=== PATIENT | female | born 1985 | race African-American/Black ===

== ENCOUNTER 2018-04-19 16:45 | Inpatient (IN) | payer MEDICAID, MEDICARE ==
[2018-04-19] MEDS ORDERED: BETAMET ACET/BETAMET NA INJ 6 MG/1 ML IM PRN (18:10)
[2018-04-19] MEDS ORDERED: PENICILLIN G POTASSIUM 5,000,000 UNIT in DEXTROSE 5%-WATER 100 ML IV ONE (18:15)
[2018-04-19] MEDS ORDERED: RINGERS SOLUTION,LACTATED 1,000 ML IV ONE (18:15)
[2018-04-19] MEDS ORDERED: RINGERS SOLUTION,LACTATED 1,000 ML IV PRN (18:15)
--- NOTE | 2018-04-19 18:17 | Admission Physical ---
Datetime Report Generated by CPN: 04/19/2018 18:17 CURRENT ADMISSION Chief Complaint: Uterine Contractions; Suspected Ruptured Membranes Chief Complaint Other: Multigravida Indication for Induction: PROM Admit Impression : , Intrauterine ; Ruptured Membranes Admit Impression- Other: + Actiprom Admit Plan: Admit to Unit; Initiate Labor Augmentation Protocol ALLERGIES Medication Allergies: Yes Medication Allergies: haloperidol/NH (04/19/2018) Latex: No Latex Allergies OBSTETRICAL HISTORY EDC: 05/30/2018 00:00 : 10 Para: 7 Term: 7 : 2 Cesareans: 0 Gestational Diabetes: No Rh Sensitization: No Incompetent Cervix: No DEANDRA: No Infertility: No ART Treatment: No IUGR: No Hx Previous C/S: No Macrosomia: No Hx Loss/Stillborn: Yes PIH: No Hx : Yes Placenta Previa/Abruption: No Depression/PP Depression: No Post Hemorrhage: No Current Procedures: Ultrasound; NST SEE RECORDS Alcohol: No Marijuana : No Cocaine: No Other Illicit Drugs: No Cigarettes: Current Everyday Smoker. [id number] MEDICAL HISTORY Diabetes: No Blood Transfusion: No Pulmonary Disease (Asthma, TB): No Breast Disease: No Hypertension: No [employer] Surgery: No Heart Disease: No Hosp/Surgery: Yes Autoimmune Disorder: No Anesthetic Complications: No Kidney Disease: No Abnormal Pap Smear: No Neuro/Epilepsy: No Psychiatric Disorders: Yes Other Medical Diseases: No Hepatitis/Liver Disease: No Significant Family History: No Varicosities/Phlebitis: No Trauma/Violence : No Thyroid Dysfunction: No Medical History Comments: depression - 2008 INFECTIOUS HISTORY Gonorrhea: No Genital Herpes: No Chlamydia: No Tuberculosis: No Syphilis: No Hepatitis: No HIV/AIDS Exposure: No Rash or Viral Illness: No HPV: No PHYSICAL EXAM General: Normal HEENT: Normal Neurologic: Normal Thyroid: Normal Heart: Normal Lungs: Normal Breast: Normal Back: Normal Abdomen: Normal Genitourinary Exam: Normal Extremities: Normal DTRs: Normal Pelvic Type: Adequate Vital Signs: Reviewed; Within Normal Limits VAGINAL EXAM Dilatation: 4 Effacement: 75 Station: -3 MEMBRANES Pooling: Positive Membranes: Ruptured Amniotic Fluid Color: Clear FETUS A EGA: 34.1 Monitoring: External US FHR- Baseline: 140 Variability: Moderate 6-25bpm Accelerations: 15X15 Decelerations: Variable FHR Category: Category I Estimated Weight (gm): 1700 Presentation: Vertex Admit Comment: d/w pt regarding ACS. In light of 34 wk EGA will give a dose of ACS to enhance surfactant production. Will augment as needed for delivery. GBS prophylaxis PLANS FOR LABOR AND DELIVERY Labor and Delivery: None Pain Management: None Feeding Preference: Both Benefit of Breast Feed Discussed: Yes Circumcision: Yes INFORMED CONSENT Signature: with User ID: [email or web address]
[2018-04-19] MEDS ORDERED: BETAMET ACET/BETAMET NA INJ 6 MG/1 ML ONE (18:19)
[2018-04-19] MEDS ORDERED: PENICILLIN G-K 5 MILLION UNIT VIAL ONE (18:20)
[2018-04-19 19:08] LABS: APPEARANCE,URINE SLIGHTLY-CLOUDY; BILIRUBIN,URINE NEGATIVE (NEGATIVE); COLOR,URINE STRAW; GLUCOSE, URINE NEGATIVE (NEGATIVE); KETONES,URINE NEGATIVE (NEGATIVE); LEUKOCYTE ESTERASE,URINE MODERATE (NEGATIVE); NITRITE,URINE NEGATIVE (NEGATIVE); PROTEIN,URINE NEGATIVE (NEGATIVE); URINE SPECIFIC GRAVITY 1.003; UROBILINOGEN,URINE NEGATIVE mg/dL (<2.0)
[2018-04-19 19:09] LABS: ABSOLUTE EOSINOPHILS # (AUTO) 0.1 10^3/uL (0.0-0.6); ABSOLUTE LYMPHOCYTES (AUTO) 1.3 10^3/uL (0.5-4.7); ABSOLUTE MONOCYTES (AUTO) 0.5 10^3/uL (0.1-1.4); ABSOLUTE NEUT (AUTO) 4.3 10^3/uL (1.7-8.2); BASOPHILS % (AUTO) 0.3 % (0-2); EOSINOPHILS % (AUTO) 1.2 % (0-6); HEMATOCRIT 26.2 % (36.0-47.0); HEMOGLOBIN 8.9 g/dL (12.0-15.5); LYMPHOCYTES % (AUTO) 20.5 % (13-45); MEAN CORPUSCULAR HEMOGLOBIN 28.1 pg (27.0-33.4); MEAN CORPUSCULAR VOLUME 83 fl (80-97); MONOCYTES % (AUTO) 8.5 % (3-13); PLATELET COUNT 260 10^3/uL (150-450); RED BLOOD COUNT 3.17 10^6/uL (3.72-5.28); RED CELL DISTRIBUTION WIDTH 14.1 % (11.5-14.0); SEGMENTED NEUTROPHILS % (AUTO) 69.5 % (42-78); TOTAL CELLS COUNTED % (AUTO) 100 %; WHITE BLOOD COUNT 6.2 10^3/uL (4.0-10.5)
[2018-04-19] MEDS ORDERED: OXYTOCIN 10 UNIT/ML VIAL ONE (19:21)
[2018-04-19] MEDS ORDERED: MISOPROSTOL 0.2 MG TABLET ONE (19:21)
[2018-04-19] MEDS ORDERED: LIDOCAINE 1% INJ-PF (10 MG/ML) 30 ML SDV ONE (19:22)
[2018-04-19] MEDS ORDERED: OXYTOCIN/NORMAL SALINE 20 UNIT/1,000 ML RTUINJ ONE (19:22)
[2018-04-19 19:28] LABS: URINE AMPHETAMINES SCREEN NEGATIVE; URINE BARBITURATES SCREEN NEGATIVE; URINE BENZODIAZEPINES SCREEN NEGATIVE; URINE MARIJUANA (THC) SCREEN NEGATIVE; URINE METHADONE SCREEN NEGATIVE; URINE PHENCYCLIDINE SCREEN NEGATIVE
[2018-04-19 19:31] LABS: URINE COCAINE SCREEN UNCONFIRMED POSITIVE
[2018-04-19] MEDS ORDERED: ACETAMINOPHEN 325 MG TABLET ONE (20:13)
[2018-04-19] MEDS ORDERED: ACETAMINOPHEN 325 MG TABLET PO ONE (20:15)
[2018-04-19 20:48] LABS: CHLAM PCR NOT DETECTED (NOT DETECT); GON PCR NOT DETECTED (NOT DETECT)
[2018-04-19] MEDS ORDERED: PENICILLIN G POTASSIUM 2,500,000 UNIT in DEXTROSE 5%-WATER 50 ML IV SCH (22:15)
[2018-04-19] MEDS ORDERED: PROMETHAZINE HCL INJ 25 MG/1 ML VIAL ONE (22:24)
[2018-04-19] MEDS ORDERED: MEPERIDINE HCL/PF INJ 25 MG/1 ML DISP.SYRIN ONE (22:25)
[2018-04-19] MEDS ORDERED: NA PHOS,M-B/NA PHOS,DI-BA (ADULT) 133 ML ENEMA PR PRN (22:33)
[2018-04-19] MEDS ORDERED: MEASLES,MUMPS&RUBELLA VACC/PF 0.5 ML VIAL SUBCUT PRN (22:33)
[2018-04-19] MEDS ORDERED: OXYTOCIN/NORMAL SALINE 20 UNIT/1,000 ML RTUINJ IV PRN (22:33)
[2018-04-19] MEDS ORDERED: GLYCERIN/WITCH HAZEL LEAF 1 EACH MED..PAD TP PRN (22:33)
[2018-04-19] MEDS ORDERED: DIPH/PERTUSS(ACELL)/TETANUS VAC/PF 0.5 ML SYR (>=10YO) IM PRN (22:33)
[2018-04-19] MEDS ORDERED: ACETAMINOPHEN WITH CODEINE #3 TABLET PO PRN (22:33)
[2018-04-19] MEDS ORDERED: PROMETHAZINE HCL 25 MG TABLET PO PRN (22:33)
[2018-04-19] MEDS ORDERED: PSEUDOEPHEDRINE HCL 30 MG TABLET PO PRN (22:33)
[2018-04-19] MEDS ORDERED: MAGNESIUM HYDROXIDE SUSP 30 ML UDCUP PO PRN (22:33)
[2018-04-19] MEDS ORDERED: BENZOCAINE/MENTHOL AEROSOL SPRAY 56 ML TOP PRN (22:33)
[2018-04-19] MEDS ORDERED: ZOLPIDEM TARTRATE 5 MG TABLET PO PRN (22:33)
[2018-04-19] MEDS ORDERED: DIPHENHYDRAMINE HCL 25 MG CAPSULE PO PRN (22:33)
[2018-04-19] MEDS ORDERED: PROMETHAZINE HCL 25 MG SUPP.RECT PR PRN (22:33)
[2018-04-19] MEDS ORDERED: DIBUCAINE 1% OINTMENT 28 GM TP PRN (22:33)
[2018-04-19] MEDS ORDERED: ACETAMINOPHEN 650 MG SUPP.RECT PR PRN (22:33)
[2018-04-19] MEDS ORDERED: PROMETHAZINE HCL INJ 25 MG/1 ML VIAL IV PRN (22:33)
--- NOTE | 2018-04-20 00:16 | Warning Signs in Babies ---
VOD Warning Signs Datetime Report Generated by [facility]: 04/20/2018 00:16 VOD#608 -Warning Signs in Babies: Needs to be viewed. (04/19/2018 17:32:Essie Dunn RN)
[2018-04-20] MEDS: ACETAMINOPHEN WITH CODEINE #3 TABLET PO PRN ×3 (04:06→13:58)
[2018-04-20] MEDS: IBUPROFEN 800 MG TABLET PO SCH ×3 (06:49→21:40)
[2018-04-20 07:26] LABS: HEMATOCRIT 27.7 % (36.0-47.0); HEMOGLOBIN 9.4 g/dL (12.0-15.5); MEAN CORPUSCULAR HEMOGLOBIN 27.6 pg (27.0-33.4); MEAN CORPUSCULAR VOLUME 81 fl (80-97); PLATELET COUNT 294 10^3/uL (150-450); RED CELL DISTRIBUTION WIDTH 13.7 % (11.5-14.0); WHITE BLOOD COUNT 11.6 10^3/uL (4.0-10.5)
[2018-04-20] MEDS: PRENATAL VITAMIN W DHA CAPSULE PO SCH (09:32)
[2018-04-20] MEDS: DOCUSATE SODIUM 100 MG CAPSULE PO SCH ×2 (09:32→18:32)
[2018-04-20] MEDS: FERROUS SULFATE 325 MG TABLET PO SCH ×2 (09:33→18:32)
[2018-04-20] MEDS: FAMOTIDINE 20 MG TABLET PO SCH ×2 (09:33→21:40)
[2018-04-20] MEDS: SENNOSIDES/DOCUSATE 8.6-50 MG 1 EACH TABLET PO SCH (09:33)
--- NOTE | 2018-04-20 16:13 | PDOC PROGRESS REPORT ---
Subjective-OB Progress Note for:: 04/20/18 Subjective: reports bleeding slowing, pain controlled with current meds except back pain, requests k-pad, RN notified Physical Exam (OB) Vital Signs: Temp Pulse Resp BP Pulse Ox 98.2 F 91 18 103/59 L 98 04/20/18 07:42 04/20/18 07:42 04/20/18 07:42 04/20/18 07:42 04/20/18 07:42 Intake & Output 04/19/18 04/20/18 04/21/18 06:59 06:59 06:59 Weight 61.1 kg - Abdomen Description: Soft, Round Hernia Present: No Fundal Description: Firm, Midline Fundal Height: u/u - u/2 - Abdominal Tenderness: Nontender - Extremities Lower extremities: Jovan's sign - neg Calf: Normal, Nontender Objective-Diagnostic Laboratory: 04/20/18 07:15 04/19/18 04/19/18 04/19/18 18:41 18:41 18:41 WBC 6.2 RBC 3.17 L Hgb 8.9 L Hct 26.2 L MCV 83 MCH 28.1 MCHC 34.0 RDW 14.1 H Plt Count 260 Seg Neutrophils % 69.5 Lymphocytes % 20.5 Monocytes % 8.5 Eosinophils % 1.2 Basophils % 0.3 Absolute Neutrophils 4.3 Absolute Lymphocytes 1.3 Absolute Monocytes 0.5 Absolute Eosinophils 0.1 Absolute Basophils 0.0 Urine Color STRAW Urine Appearance SLIGHTLY-CLOUDY Urine pH 7.0 Ur Specific [place] 1.003 Urine Protein NEGATIVE Urine Glucose (UA) NEGATIVE Urine Ketones NEGATIVE Urine Blood MODERATE H Urine Nitrite NEGATIVE Ur Leukocyte Esterase MODERATE H Blood Type O POSITIVE Antibody Screen NEGATIVE 04/20/18 07:15 WBC 11.6 H RBC 3.40 L Hgb 9.4 L Hct 27.7 L MCV 81 MCH 27.6 MCHC 34.0 RDW 13.7 Plt Count 294 Seg Neutrophils % Lymphocytes % Monocytes % Eosinophils % Basophils % Absolute Neutrophils Absolute Lymphocytes Absolute Monocytes Absolute Eosinophils Absolute Basophils Urine Color Urine Appearance Urine pH Ur Specific [place] Urine Protein Urine Glucose (UA) Urine Ketones Urine Blood Urine Nitrite Ur Leukocyte Esterase Blood Type Antibody Screen Assessment and Plan(PN) - Assessment and Plan (1) delivery Is this a current diagnosis for this admission?: Yes (2) Vaginal delivery Is this a current diagnosis for this admission?: Yes - Time Spent with Patient Time with patient: Less than 15 minutes - Disposition Anticipated Discharge: Home Within: within 24 hours
[2018-04-21] MEDS: IBUPROFEN 800 MG TABLET PO SCH ×2 (07:35→17:15)
[2018-04-21] MEDS: ACETAMINOPHEN WITH CODEINE #3 TABLET PO PRN (08:29)
[2018-04-21 08:39] VITALS: BP 124/85
[2018-04-21] MEDS: DOCUSATE SODIUM 100 MG CAPSULE PO SCH (10:07)
[2018-04-21] MEDS: FERROUS SULFATE 325 MG TABLET PO SCH (10:07)
[2018-04-21] MEDS: SENNOSIDES/DOCUSATE 8.6-50 MG 1 EACH TABLET PO SCH (10:07)
[2018-04-21] MEDS: PRENATAL VITAMIN W DHA CAPSULE PO SCH (10:07)
[2018-04-21] MEDS: FAMOTIDINE 20 MG TABLET PO SCH (10:07)
[2018-04-21] MEDS ORDERED: MEDROXYPROGESTERONE ACET INJ 150 MG/1 ML VIAL IM ONE (14:39)
--- NOTE | 2018-04-21 14:44 | PDOC DISCHARGE SUMMARY ---
Final Diagnosis Discharge Date: 04/21/18 - Final Diagnosis (1) delivery Is this a current diagnosis for this admission?: Yes (2) Vaginal delivery Is this a current diagnosis for this admission?: Yes Discharge Data - Discharge Medication Prescriptions: Ibuprofen [Motrin 800 mg Tablet] 800 mg PO Q8HP PRN #60 tablet PRN Reason: Home Medications: #57/Iron/FA/Dss/Dha [Tl-Select Dha Softgel] 1 cap PO DAILY 11/04/12 Ferrous Sulfate [Iron] 325 mg PO DAILY 06/05/16 Ibuprofen [Motrin 800 mg Tablet] 800 mg PO Q8HP PRN #60 tablet 04/21/18 Procedures: NST Intrapartum Procedure(s): Spontaneous Vaginal Delivery - Diagnosis Test Laboratory: Temp Pulse Resp BP Pulse Ox 98.5 F 84 18 124/85 99 04/21/18 08:00 04/21/18 08:00 04/21/18 08:00 04/21/18 08:00 04/21/18 08:00 04/19/18 04/19/18 04/20/18 18:41 18:41 07:15 RBC 3.17 L 3.40 L Hgb 8.9 L 9.4 L Hct 26.2 L 27.7 L Urine Opiates Screen NEGATIVE - Discharge information/Instructions Discharge Activity: Balance Activity w/Rest, Pelvic Rest Discharge Diet: Regular Disposition: HOME, SELF-CARE Follow up with: [facility] in: 3, Weeks
--- NOTE | 2018-05-03 17:09 | Delivery Summary ---
Del Sum A-C Datetime Report Generated by CPN: 05/03/2018 17:09 DELIVERY PERSONNEL DELIVERY PERSONNEL: [id number] Delivery Doctor:: Anita Muro MD Labor and Delivery Nurse:: Essie Dunn RN Neonatal Nurse Practitioner:: Tashia Burleson, ROOM SERVICE SERVER Nursery Nurse:: Yelena Lindsey RN Nursery Nurse:: Jessica Chavarria RN Architectural Engineering Teacher/PROPOSAL ENGINEER: Lizeth Azul, ST MATERNAL INFORMATION Delivery Anesthesia: None Medications After Delivery: Pitocin Drip 20 Units/1000ml NSS Estimated Blood Loss (ml): 200 Maternal Complications: Premature Rupture of Membranes Provider Comments: manual removal of placenta due to cord evulsion LABOR SUMMARY EDC: 05/30/2018 00:00 No. Babies in Womb: 1 Attempted: No Labor Anesthesia: None LABOR INFORMATION Reason for Induction: Not Applicable Onset of Labor: 04/19/2018 11:30 Complete Dilatation: 04/19/2018 22:09 Oxytocin: N/A Group B Beta Strep: unk Antibiotics # of Doses: 1 Antibiotics Time of Last Dose: 18:30 Name of Antibiotic Given: PCN Steroids Given: Partial Course; < 24 Hours before Delivery Reason Steroids Not Administered: Not Applicable MEMBRANES Membranes Rupture Method: Spontaneous Rupture of Membranes: 04/19/2018 11:30 Length of Rupture (hr): 10.77 Amniotic Fluid Color: Clear Amniotic Fluid Amount: Moderate Amniotic Fluid Odor: Normal STAGES OF LABOR Stage 1 hr: 10 Stage 1 min: 39 Stage 2 hr: 0 Stage 2 min: 7 Stage 3 hr: 0 Stage 3 min: 8 Total Time in Labor hr: 10 Total Time in Labor min: 54 VAGINAL DELIVERY Episiotomy: None Laceration #1: None Laceration Extension #1: N/A Laceration Repair: Not Applicable Sponge Count Correct: N/A Sharps Count Correct: N/A CSECTION DELIVERY Primary Indication: N/A Secondary Indication: N/A CSection Incidence: N/A Labor: N/A Elective: N/A CSection Incision: N/A BABY A INFORMATION Delivery Date/Time: 04/19/2018 22:16 Method of Delivery: Vaginal Method of Delivery: Vaginal Born in Route : No : N/A Forceps: N/A Vacuum Extraction: N/A Shoulder Dystocia : No PRESENTATION/POSITION BABY A Presentation: Cephalic Cephalic Presentation: Vertex Vertex Position: Left Occipital Anterior Breech Presentation: N/A PLACENTA INFORMATION BABY A Placenta Delivery Time : 04/19/2018 22:24 Placenta Method of Delivery: Manual Removal Placenta Method of Delivery: Manual Removal Placenta Status: Delivered SCORES BABY A Heart Rate 1 min: >100 bpm Resp Effort 1 min: Good Cry Reflex Irritability 1 min: Cough or Sneeze or Pulls Away Muscle Tone 1 min: Some Flexion of Extremities Color 1 min: Body [place], Extremities Blue Resuscitation Effort 1 min: Tactile Stimulation SCORE 1 MIN: 8 Heart Rate 5 min: >100 bpm Resp Effort 5 min: Good Cry Reflex Irritability 5 min: Cough or Sneeze or Pulls Away Muscle Tone 5 min: Some Flexion of Extremities Color 5 min: Body [place], Extremities Blue Resuscitation Effort 5 min: Tactile Stimulation SCORE 5 MIN: 8 INFORMATION BABY A Gestational Age at Delivery: 34.1 Gestational Status: Late - 34- 36.6 Weeks Infant Outcome : Liveborn Infant Condition : Stable Sex: Male Sex: Male IDENTIFICATION BABY A Verification Date/Time: 04/19/2018 22:42 ID Band Number: [id number] Mother's Name Verified: Yes Infant RN Verifying : NDoyle RN Additional Verifying Personnel: [facility] RN WEIGHT/LENGTH BABY A Infant Birthweight (gm): 2424 Weight (lb): 5 Weight (oz): 6 Infant Length (in): 17.50 Infant Length (cm): 44.45 CORD INFORMATION BABY A No. Cord Vessels: 3 [place] Cord : N/A Cord Blood Taken: Yes-For Eval (Mom's Blood Type - or O+) ASSESSMENT BABY A Skin to Skin: No BABY B INFORMATION : N/A SIGNATURES Signature: with User ID: [email or web address]
== END 2018-04-21 17:42 | disposition home or self-care (01) | DRG 775 ==
LOC: LC 16:45 → LR 18:05 → 2S 04-20 00:33
PROVIDERS: ADMIT Obstetrics & Gynecology; ATTEND Obstetrics & Gynecology
PROC: 10E0XZZ Delivery of Products of Conception, External Approach (ICD-10-PCS; principal; 2018-04-19)
PROC: 4A1HXCZ Monitoring of Products of Conception, Cardiac Rate, External Approach (ICD-10-PCS; 2018-04-19)
DX: O42.013 Preterm premature rupture of membranes, onset of labor within 24 hours of rupture, third trimester (principal); O42.913 Preterm premature rupture of membranes, unspecified as to length of time between rupture and onset of labor, third trimester; O99.334 Smoking (tobacco) complicating childbirth; F17.210 Nicotine dependence, cigarettes, uncomplicated; Z3A.34 34 weeks gestation of pregnancy; Z37.0 Single live birth
CPT/HCPCS: 36415; 80307; 80353; 81005; 84112; 85025; 85027; 86592; 86850; 86900; 86901; 87491; 87591; 88307; G0480; J0702; J1050; J2175; J2540; J2550; J2590; J3490